=== PATIENT | female | born 1975 | race Caucasian/White ===

== ENCOUNTER 2023-03-12 15:39 | Emergency (ER) | payer BC, SELFPAY ==
[2023-03-12 15:40] VITALS: BP 173/110; PULSE 115; RESP 22; TEMP 36.5; O2SAT 100
[2023-03-12] MEDS: LORazepam 2 MG/ML Syringe 1 MG IM ×2 (15:59→17:09)
--- NOTE | 2023-03-12 16:05 | ED.RN ---
This RN attempted to coach driver pt in slowing down breathing as pt hyperventilating. Pt yells I can't fucking breathe through my nose. Pt becoming more agitated and continues cursing at this RN despite attempts to console. Pt medicated with Ativan, will continue to monitor.
--- NOTE | 2023-03-12 16:06 | EDS_ITS ---
HPI History of Present Illness Chief Complaint: Shortness of Breath Narrative Narrative: Patient is quite upset, apparently her dog got attacked with multiple injuries and she had to take him to the [employer] coloring [facility]. She developed tachypnea, numbness in fingers and toes and at times her fingers and hands would lock up. She is quite anxious. This started just less than an hour ago. Her mom brought her to the hospital. No other symptoms. [facility] Medical History (Updated 03/12/23 @ 18:[address] Quique Adorno MD) HTN (hypertension) Home Medications buspirone 5 mg tablet 5 mg PO DAILY 03/12/23 [History Last Taken Unknown] escitalopram oxalate 20 mg tablet 20 mg PO DAILY 03/12/23 [History Last Taken Unknown] lisinopril 10 mg tablet 10 mg PO DAILY 03/12/23 [History Last Taken Unknown] Allergy/AdvReac Type Severity Reaction Status Date / Time No Known Allergies Allergy Verified 03/12/23 17:15 Social History Smoking Status: Unknown if ever smoked ROS ROS ED ROS Narrative Past medical history: Reviewed Medications: Reviewed Social history: Noncontributory Review of systems: All systems negative except as indicated General: No fever Eyes: No visual changes ENT: No upper airway congestion, normal voice Neck: No neck pain Cardiovascular: No chest pain Respiratory: Dyspnea and tachypnea Gastrointestinal: No abdominal pain, nausea vomiting or diarrhea Genitourinary: No dysuria. Denies Musculoskeletal: Denies myalgias no difficulty with ambulation Skin: No rash Neurological: Paresthesias in fingers with intermittent locking of the hands Psych: Quite anxious EXAM Physical Exam Narrative Exam Narrative: Physical exam General: Patient appears uncomfortable. She is hyperventilating Head: Normocephalic, Atraumatic Eyes: Conjunctiva not pale ENT: Moist mucous membranes normal voice. Neck: Supple, Nontender, No lymphadenopathy Cardiovascular: Regular tachycardia no murmurs Respiratory: Tachypnea but clear lungs bilaterally. Normal pulse ox of 100% Abdomen: Soft, Nontender, Nondistended Back: Nontender, Normal Inspection. Negative for: CVA tenderness Extremities: Currently full range of motion. No edema Skin: Normal color, No rash Neurological: Alert, Normal Strength, Normal Sensation Psychological: Anxious appearing Const Vital Signs: 03/12/23 15:40 03/12/23 17:15 03/12/23 17:16 Temperature 97.7 F L Temperature Source Temporal Pulse Rate 115 H Respiratory Rate 22 H 24 H Respiratory Effort Short of Breath Respiratory Depth Deep Respiratory Pattern Hyperpnea Blood Pressure 173/110 H Blood Pressure Mean 131 Pulse Ox 100 100 Oxygen Delivery Method Room Air Room Air Room Air MDM MDM MDM Narrative Medical decision making narrative: Patient is likely hyperventilating. I thought about an [place] however patient has a normal EKG with improvement of pain with Ativan, she had a clear event that was quite distressing. She also had carpopedal spasms. I thought about pneumothorax or pneumonia however she does not have any signs or symptoms of any of this. After Ativan and Vistaril she is significantly improved, she is no longer anxious she is not longer hyperventilating and she wants to be discharged home. I believe this is quite reasonable. She will be discharged in stable condition. Independent interpretations: Telemetry: Sinus rhythm with a rate in the 80s without ectopy EKG: Sinus rhythm with a rate of 86. Normal [place] and QTc intervals. No ischemic changes. Discharge Plan Triage Chief Complaint: Shortness of Breath ED Provider: Quique Adorno Dx/Rx/DC Orders Clinical Impression: Acute dyspnea, Acute hyperventilation, Carpopedal spasm Instructions: Hyperventilation Syndrome Prescriptions: No Action buspirone 5 mg tablet 5 mg PO DAILY Label Comments: TAKE 1 TABLET BY MOUTH TWICE DAILY lisinopril 10 mg tablet 10 mg PO DAILY Label Comments: TAKE 1 TABLET BY MOUTH ONCE DAILY IN THE MORNING escitalopram oxalate 20 mg tablet 20 mg PO DAILY Label Comments: TAKE 1 TABLET BY MOUTH ONCE DAILY Primary Care Provider: Care Physician,No Primary Referrals: NOT,DEFINED [Non-Staff] - Disposition Disposition: Home, Self Care
[2023-03-12] MEDS: hydrOXYzine 50 MG/ML Vial IM (17:09)
[2023-03-12 17:15] VITALS: O2SAT 100
[2023-03-12 17:16] VITALS: RESP 24; O2SAT 100
== END 2023-03-12 18:52 | disposition home or self-care (01) ==
PROVIDERS: Emergency Provider Emergency Medicine; Visit Provider Emergency Medicine
DX: R06.4 Hyperventilation (principal); R29.0 Tetany; I10 Essential (primary) hypertension; R06.00 Dyspnea, unspecified; Z79.899 Other long term (current) drug therapy
CPT/HCPCS: 93005; 96372; 99282